=== PATIENT | female | born 1945 | race Caucasian/White ===

== ENCOUNTER 2017-05-22 09:06 | Emergency (ER) | payer OTHER, BC ==
[~2017-05-22] VITALS: Ht 165.1 cm; Wt 71.5 kg
[~2017-05-22 09:06] MED LIST: AMBIEN5 MG PO; DURAGESIC50 MCG TD; GABAPENTIN300 MG PO; K-DUR20 MEQ PO; LIDODERM 5% P1 PATCH TD; LOSARTAN-HCTZ1 EAC1 PO; MAGNESIUM400 M1 PO; OMEPRAZOLE40 M1 PO; PERCOCET 10/1 TABLET PO; POTASSIUM CHLOR8 ME2 PO; PREDNISONE2.5 MG PO; SYNTHROID50 MCG PO
[2017-05-22 10:36] LABS: HEMATOCRIT 25.1 % (36.0-46.0); MCH 31.5 PG (29.0-34.0); MCHC 31.5 G/DL (30.0-36.0); MEAN PLAT.VOLUME 9.9 uM^3 (9.5-12.4); PLATELET COUNT 303 K/uL (156-360); RBC DIS.WIDTH-CV 18.8 % (11.8-14.6); RBC DIS.WIDTH-SD 66.4 % (39-53); RED BLOOD COUNT 2.51 M/uL (3.80-5.20); WHITE BLOOD COUNT 9.2 K/uL (4.1-10.2)
[2017-05-22 10:46] LABS: BASE EXCESS 4.4 mEq/L (-3 to +3); BICARBONATE 29.2 mEq/L (22-26); CARBOXY HGB 2.1 % (0-5); COMMENTS - BLOOD GASES +C; DEVICE PB840; FI02 75 %; MECHANICAL RATE 16 resp/min; METHEMOGLOBIN 1.1 % (0-1.5); MODE AC; PCO2 44 mm Hg (35-45); PEEP 10 CM/H20; PO2 102 mm Hg (80-100); SITE LR +A; TIDAL VOLUME 430 ML; TOTAL RESP RATE 16 resp/min; pH 7.43 (7.35-7.45)
[2017-05-22 10:52] LABS: CHLORIDE 112 mEq/L (99-109); POTASSIUM 2.8 mEq/L (3.7-5.4); SODIUM 145 mEq/L (136-147)
[2017-05-22 10:54] LABS: GLUCOSE 95 mg/dL (70-99)
[2017-05-22 10:55] LABS: ANION GAP 6 MEQ/L (2-14)
[2017-05-22 10:57] LABS: GFR ESTIMATE (CALCULATED) > 59 mL/min/
[2017-05-22 10:58] LABS: UREA NITROGEN (BUN) 8 mg/dL (9-23)
[2017-05-22 12:15] VITALS: BP 141/75
== END 2017-05-22 12:06 | disposition short-term general hospital (02) ==
LOC: EME 09:06
PROVIDERS: Emergency Medicine
DX: J15.9 Unspecified bacterial pneumonia (principal); J96.91 Respiratory failure, unspecified with hypoxia; Z98.890 Other specified postprocedural states; Z98.1 Arthrodesis status; Z79.52 Long term (current) use of systemic steroids
CPT/HCPCS: 36600; 70450; 71010; 71275; 80048; 81003; 82803; 83605; 85027; 87040; 93005; 94002; 99281; 99285; J0456; J2250; J2310; J2543; J3010; J3370; J7030